=== PATIENT | male | born 1985 | race Two or more races ===

== ENCOUNTER 2021-03-05 17:47 | Inpatient (IN) | payer MEDICAID, OTHER ==
[~2021-03-05] VITALS: Ht 182.9 cm; Wt 125.0 kg
[2021-03-05] MEDS ORDERED: ACETAMINOPHEN 500 MG TAB PO ONE (18:00)
[2021-03-05 18:55] LABS: Basophils # (auto) 0.1 10 ^3/uL (0-0.2); Basophils % (auto) 1.4 % (0.0-2.0); Eosinophils # (auto) 0 10 ^3/uL (0-0.8); Eosinophils % (auto) 0.1 % (0.0-7.0); Hematocrit 48.1 % (41.0-53.0); Lymphocytes # (auto) 0.8 10 ^3/uL (0.4-5.4); Lymphocytes % (auto) 17.5 % (10.0-50.0); Mean Corpuscular Hemoglobin 31.2 pg (28.0-32.0); Mean Corpuscular Hgb Conc. 35.3 g/dL (32.0-36.0); Mean Corpuscular Volume 88.2 fL (80.0-100.0); Monocytes # (auto) 0.3 10 ^3/uL (0-1.3); Monocytes % (auto) 5.8 % (0.0-12.0); Neutrophils # (auto) 3.6 10 ^3/uL (1.6-8.6); Neutrophils % (auto) 75.2 % (37.0-80.0); Nucleated Red Blood Cells % 0.5 %; Red Blood Cells 5.45 10^6/uL (4.5-5.90); Red Cell Distribution Width 13.9 % (11.8-14.3); White Blood Cell 4.7 10^3/uL (4.4-10.8)
[2021-03-05 19:06] LABS: INR 1.05 (0.9-1.15); Partial Thromboplastin Time 29.3 sec (23.6-33.0)
[2021-03-05 19:10] LABS: Albumin 3.6 g/dL (3.4-5.0); BUN/Creatinine Ratio 8.9; Calcium 8.4 mg/dL (8.5-10.1)
[2021-03-05 19:12] LABS: Bilirubin, Total 0.9 mg/dL (0.2-1.0); Total Protein 7.7 g/dL (6.4-8.2)
[2021-03-05] MEDS ORDERED: SODIUM CHLORIDE 0.9% 1,000 ML IV ONE (19:45)
[2021-03-05] MEDS ORDERED: DexAMETHasone SOD PHOS 10MG/1ML VIAL INJ IV ONE (20:00)
[2021-03-05] MEDS ORDERED: AZITHROMYCIN 500MG/ 250ML 250 ML IV ONE (20:00)
[2021-03-05] MEDS ORDERED: IOHEXOL 350 MG/ML 100ML IJ ONE (20:00)
[2021-03-05 20:17] LABS: Magnesium 2.4 mg/dL (1.6-2.6)
[2021-03-05] MEDS ORDERED: DOCUSATE SOD 100 MG CAP PO PRN (22:30)
[2021-03-05] MEDS ORDERED: SODIUM CHLORIDE 0.9% 1,000 ML IV SCH (22:30)
[2021-03-05] MEDS ORDERED: MORPHINE SULFATE INJECTION 2 MG/ML SYRG IV PRN (22:30)
[2021-03-05] MEDS ORDERED: ONDANSETRON HCL 4 MG/2 ML VIAL IV PRN (22:30)
[2021-03-05] MEDS ORDERED: HYDROcodone-ACET 5/325MG TAB PO PRN (22:30)
[2021-03-05] MEDS ORDERED: ACETAMINOPHEN 500 MG TAB PO PRN (22:30)
[2021-03-05] MEDS ORDERED: NITROGLYCERIN 0.4 MG SL TAB SL PRN (22:30)
[2021-03-06] MEDS: cefTRIAXone 1GM/50ML D5W 50 ML IV SCH ×2 (00:25→23:06)
[2021-03-06 05:02] LABS: Basophils # (auto) 0 10 ^3/uL (0-0.2); Basophils % (auto) 0.5 % (0.0-2.0); Eosinophils # (auto) 0 10 ^3/uL (0-0.8); Hematocrit 46.6 % (41.0-53.0); Hemoglobin 16.7 g/dL (13.5-17.5); Lymphocytes # (auto) 0.6 10 ^3/uL (0.4-5.4); Mean Corpuscular Hemoglobin 31.5 pg (28.0-32.0); Mean Corpuscular Hgb Conc. 35.8 g/dL (32.0-36.0); Monocytes # (auto) 0.2 10 ^3/uL (0-1.3); Monocytes % (auto) 5.9 % (0.0-12.0); Neutrophils # (auto) 2.7 10 ^3/uL (1.6-8.6); Neutrophils % (auto) 75.6 % (37.0-80.0); Nucleated Red Blood Cells % 0.4 %; Red Cell Distribution Width 13.7 % (11.8-14.3); White Blood Cell 3.6 10^3/uL (4.4-10.8)
[2021-03-06 05:14] LABS: Albumin 3.3 g/dL (3.4-5.0); Calcium 8.3 mg/dL (8.5-10.1); Potassium 4.3 mmol/L (3.5-5.1)
[2021-03-06 05:18] LABS: BUN/Creatinine Ratio 10.5; Bilirubin, Total 0.7 mg/dL (0.2-1.0); Total Protein 7.2 g/dL (6.4-8.2)
[2021-03-06] MEDS: BUDESONIDE (INHALATION) 180 MCG IH IN SCH ×2 (08:30→19:28)
[2021-03-06] MEDS: ALBUTEROL SULF HFA 90MCG INH 200DOSE IN PRN ×2 (09:25→19:28)
[2021-03-06] MEDS: AZITHROMYCIN 500MG/ 250ML 250 ML IV SCH (09:30)
[2021-03-06] MEDS: ASCORBIC ACID 1,000 MG TAB PO SCH (09:30)
[2021-03-06] MEDS: FAMOTIDINE (10MG/ML) 2ML VL IV SCH ×2 (09:30→22:00)
[2021-03-06] MEDS: CHOLECALCIFEROL (VITD3) 2,000 UNIT CAP/TAB PO SCH (09:30)
[2021-03-06] MEDS: DexAMETHasone SOD PHOS 10MG/1ML VIAL INJ IV SCH (09:30)
[2021-03-06] MEDS: ZINC SULFATE 220mg CAP or TAB PO SCH (09:30)
[2021-03-06] MEDS: ENOXAPARIN SOD 40 MG/0.4 ML SYRINGE SC SCH ×2 (09:31→22:00)
[2021-03-06] MEDS: MULTIPLE VITAMIN TAB PO SCH (09:31)
[2021-03-06] MEDS ORDERED: REMDESIVIR PER PHARMACY 0 ML IV SCH (12:30)
[2021-03-06] MEDS ORDERED: FUROSEMIDE 40 MG/4 ML VIAL IV ONE (12:30)
[2021-03-06] MEDS ORDERED: FUROSEMIDE 40 MG/4 ML VIAL ONE (12:31)
[2021-03-06] MEDS: IVERMECTIN 3 MG TAB PO SCH (14:57)
[2021-03-06] MEDS ORDERED: REMDESIVIR 200 MG in NS 210ml LOADING DOSE ADULT IV ONE (15:00)
[2021-03-06 23:07] VITALS: BP 130/69
[2021-03-06 23:09] VITALS: BP 130/69
[2021-03-07 05:00] VITALS: BP 103/51
[2021-03-07 07:46] LABS: BUN/Creatinine Ratio 13.6; Calcium 8.4 mg/dL (8.5-10.1); Potassium 3.7 mmol/L (3.5-5.1)
[2021-03-07 07:49] LABS: Bilirubin, Total 0.8 mg/dL (0.2-1.0); Total Protein 7.1 g/dL (6.4-8.2)
[2021-03-07] MEDS: BUDESONIDE (INHALATION) 180 MCG IH IN SCH ×2 (08:26→22:54)
[2021-03-07] MEDS: ALBUTEROL SULF HFA 90MCG INH 200DOSE IN PRN ×2 (08:26→22:54)
[2021-03-07 08:53] VITALS: BP 125/65
[2021-03-07] MEDS: ASCORBIC ACID 1,000 MG TAB PO SCH (10:00)
[2021-03-07] MEDS: CHOLECALCIFEROL (VITD3) 2,000 UNIT CAP/TAB PO SCH (10:00)
[2021-03-07] MEDS: cefTRIAXone 1GM/50ML D5W 50 ML IV SCH (10:43)
[2021-03-07] MEDS: IVERMECTIN 3 MG TAB PO SCH (10:44)
[2021-03-07] MEDS: MULTIPLE VITAMIN TAB PO SCH (10:44)
[2021-03-07] MEDS: FAMOTIDINE (10MG/ML) 2ML VL IV SCH ×2 (10:44→21:47)
[2021-03-07] MEDS: DexAMETHasone SOD PHOS 10MG/1ML VIAL INJ IV SCH (10:44)
[2021-03-07] MEDS: ZINC SULFATE 220mg CAP or TAB PO SCH (10:45)
[2021-03-07] MEDS: ENOXAPARIN SOD 40 MG/0.4 ML SYRINGE SC SCH ×2 (10:46→21:47)
[2021-03-07] MEDS: AZITHROMYCIN 500MG/ 250ML 250 ML IV SCH (11:53)
[2021-03-07 13:00] VITALS: BP 109/61
[2021-03-07] MEDS: REMDESIVIR 100mg 100 MG in SODIUM CHL 0.9% 230 ML IV SCH (15:50)
[2021-03-07] MEDS ORDERED: guaiFENesin-DM 100/10mg/5ml SYR PO PRN (16:15)
[2021-03-07 17:00] VITALS: BP 106/60
[2021-03-07 22:08] VITALS: BP 120/58
[2021-03-08 05:25] VITALS: BP 117/84
[2021-03-08] MEDS: BUDESONIDE (INHALATION) 180 MCG IH IN SCH ×2 (06:53→23:19)
[2021-03-08] MEDS: ALBUTEROL SULF HFA 90MCG INH 200DOSE IN PRN ×2 (06:53→23:19)
[2021-03-08 07:24] LABS: Potassium 3.8 mmol/L (3.5-5.1)
[2021-03-08 07:30] VITALS: BP 99/60
[2021-03-08 07:32] LABS: BUN/Creatinine Ratio 15.4; Calcium 9.1 mg/dL (8.5-10.1)
[2021-03-08 07:37] LABS: Bilirubin, Total 0.6 mg/dL (0.2-1.0); Total Protein 7.1 g/dL (6.4-8.2)
[2021-03-08 09:00] VITALS: BP 104/56
[2021-03-08] MEDS: DexAMETHasone SOD PHOS 10MG/1ML VIAL INJ IV SCH (09:43)
[2021-03-08] MEDS: FAMOTIDINE (10MG/ML) 2ML VL IV SCH ×2 (09:43→21:32)
[2021-03-08] MEDS: MULTIPLE VITAMIN TAB PO SCH (09:44)
[2021-03-08] MEDS: ZINC SULFATE 220mg CAP or TAB PO SCH (09:44)
[2021-03-08] MEDS: IVERMECTIN 3 MG TAB PO SCH (09:44)
[2021-03-08] MEDS: ASCORBIC ACID 1,000 MG TAB PO SCH (09:45)
[2021-03-08] MEDS: CHOLECALCIFEROL (VITD3) 2,000 UNIT CAP/TAB PO SCH (09:45)
[2021-03-08] MEDS: ENOXAPARIN SOD 40 MG/0.4 ML SYRINGE SC SCH ×2 (12:38→21:32)
[2021-03-08] MEDS: AZITHROMYCIN 500MG/ 250ML 250 ML IV SCH (12:38)
[2021-03-08 13:00] VITALS: BP 99/60
[2021-03-08] MEDS: REMDESIVIR 100mg 100 MG in SODIUM CHL 0.9% 230 ML IV SCH (16:18)
[2021-03-08 17:00] VITALS: BP 109/62
[2021-03-08] MEDS: cefTRIAXone 1GM/50ML D5W 50 ML IV SCH (21:32)
[2021-03-08 22:23] VITALS: BP 111/54
[2021-03-09 05:18] VITALS: BP 134/69
[2021-03-09 05:54] LABS: Basophils # (auto) 0 10 ^3/uL (0-0.2); Basophils % (auto) 0.4 % (0.0-2.0); Eosinophils # (auto) 0 10 ^3/uL (0-0.8); Eosinophils % (auto) 0.4 % (0.0-7.0); Hematocrit 46.2 % (41.0-53.0); Hemoglobin 16.1 g/dL (13.5-17.5); Lymphocytes # (auto) 1.3 10 ^3/uL (0.4-5.4); Lymphocytes % (auto) 24.7 % (10.0-50.0); Mean Corpuscular Hemoglobin 31.2 pg (28.0-32.0); Mean Corpuscular Hgb Conc. 34.8 g/dL (32.0-36.0); Mean Corpuscular Volume 89.7 fL (80.0-100.0); Monocytes # (auto) 0.6 10 ^3/uL (0-1.3); Monocytes % (auto) 11.1 % (0.0-12.0); Neutrophils # (auto) 3.2 10 ^3/uL (1.6-8.6); Neutrophils % (auto) 63.4 % (37.0-80.0); Nucleated Red Blood Cells % 0.1 %; Red Blood Cells 5.15 10^6/uL (4.5-5.90); Red Cell Distribution Width 14.1 % (11.8-14.3); White Blood Cell 5.1 10^3/uL (4.4-10.8)
[2021-03-09 06:31] LABS: Albumin 2.9 g/dL (3.4-5.0); BUN/Creatinine Ratio 16.9; Calcium 8.8 mg/dL (8.5-10.1); Potassium 3.9 mmol/L (3.5-5.1)
[2021-03-09 06:39] LABS: Bilirubin, Total 0.7 mg/dL (0.2-1.0); CRP High Sensitivity 1.87 mg/dL (< 0.3); Total Protein 6.7 g/dL (6.4-8.2)
[2021-03-09] MEDS: ALBUTEROL SULF HFA 90MCG INH 200DOSE IN PRN ×2 (07:20→21:41)
[2021-03-09] MEDS: BUDESONIDE (INHALATION) 180 MCG IH IN SCH ×2 (07:20→21:40)
[2021-03-09 09:00] VITALS: BP 120/67
[2021-03-09] MEDS: FAMOTIDINE (10MG/ML) 2ML VL IV SCH ×2 (09:25→21:41)
[2021-03-09] MEDS: DexAMETHasone SOD PHOS 10MG/1ML VIAL INJ IV SCH (09:25)
[2021-03-09] MEDS: AZITHROMYCIN 500MG/ 250ML 250 ML IV SCH (09:26)
[2021-03-09] MEDS: MULTIPLE VITAMIN TAB PO SCH (09:26)
[2021-03-09] MEDS: ZINC SULFATE 220mg CAP or TAB PO SCH (09:26)
[2021-03-09] MEDS: ENOXAPARIN SOD 40 MG/0.4 ML SYRINGE SC SCH ×2 (09:27→21:42)
[2021-03-09] MEDS: IVERMECTIN 3 MG TAB PO SCH (09:27)
[2021-03-09] MEDS: CHOLECALCIFEROL (VITD3) 2,000 UNIT CAP/TAB PO SCH (09:27)
[2021-03-09] MEDS: ASCORBIC ACID 1,000 MG TAB PO SCH (09:27)
[2021-03-09 13:00] VITALS: BP 121/63
[2021-03-09] MEDS: REMDESIVIR 100mg 100 MG in SODIUM CHL 0.9% 230 ML IV SCH (15:44)
[2021-03-09] MEDS: cefTRIAXone 1GM/50ML D5W 50 ML IV SCH (21:42)
[2021-03-09 22:00] VITALS: BP 112/61
[2021-03-10 06:28] LABS: Calcium 8.7 mg/dL (8.5-10.1)
[2021-03-10 06:32] LABS: Albumin 2.9 g/dL (3.4-5.0); BUN/Creatinine Ratio 17.6
[2021-03-10 06:35] LABS: Bilirubin, Total 0.6 mg/dL (0.2-1.0); Total Protein 6.6 g/dL (6.4-8.2)
[2021-03-10] MEDS: BUDESONIDE (INHALATION) 180 MCG IH IN SCH ×2 (07:26→21:47)
[2021-03-10] MEDS: ALBUTEROL SULF HFA 90MCG INH 200DOSE IN PRN ×2 (07:26→21:47)
[2021-03-10 09:00] VITALS: BP 102/54
[2021-03-10] MEDS: ASCORBIC ACID 1,000 MG TAB PO SCH (10:00)
[2021-03-10] MEDS: FAMOTIDINE (10MG/ML) 2ML VL IV SCH (10:51)
[2021-03-10] MEDS: AZITHROMYCIN 500MG/ 250ML 250 ML IV SCH (10:51)
[2021-03-10] MEDS: MULTIPLE VITAMIN TAB PO SCH (10:51)
[2021-03-10] MEDS: DexAMETHasone SOD PHOS 10MG/1ML VIAL INJ IV SCH (10:51)
[2021-03-10] MEDS: ZINC SULFATE 220mg CAP or TAB PO SCH (10:51)
[2021-03-10] MEDS: CHOLECALCIFEROL (VITD3) 2,000 UNIT CAP/TAB PO SCH (10:52)
[2021-03-10] MEDS: ENOXAPARIN SOD 40 MG/0.4 ML SYRINGE SC SCH ×2 (10:52→21:52)
[2021-03-10] MEDS: IVERMECTIN 3 MG TAB PO SCH (10:52)
[2021-03-10 12:03] LABS: Hepatitis B Surface Antibody Negative
[2021-03-10 12:37] LABS: Hepatitis A Total Antibody Negative
[2021-03-10 13:00] VITALS: BP 104/60
[2021-03-10 13:14] LABS: Hepatitis B Core Total AB Negative; Hepatitis B Surface Antigen Negative (Negative); Hepatitis C Antibody Negative (Negative)
[2021-03-10] MEDS: REMDESIVIR 100mg 100 MG in SODIUM CHL 0.9% 230 ML IV SCH (15:52)
[2021-03-10 17:00] VITALS: BP 112/66
[2021-03-10] MEDS: cefTRIAXone 1GM/50ML D5W 50 ML IV SCH (21:52)
[2021-03-10 22:00] VITALS: BP 106/59
[2021-03-11 05:00] VITALS: BP 121/66
[2021-03-11] MEDS: BUDESONIDE (INHALATION) 180 MCG IH IN SCH (07:17)
[2021-03-11] MEDS: ALBUTEROL SULF HFA 90MCG INH 200DOSE IN PRN (07:17)
[2021-03-11 09:26] VITALS: BP 142/66
== END 2021-03-11 11:00 | disposition home or self-care (01) | DRG 137 ==
LOC: ER 17:47 → TELE 22:28 → TELE-EAST 03-06 22:22
PROVIDERS: ADMIT Nurse Practitioner Family; ATTEND Internal Medicine
PROC: XW033E5 Introduction of Remdesivir Anti-infective into Peripheral Vein, Percutaneous Approach, New Technology Group 5 (ICD-10-PCS; principal; 2021-03-06)
DX: U07.1 COVID-19 (principal); J96.01 Acute respiratory failure with hypoxia; J12.82 Pneumonia due to coronavirus disease 2019; Z68.43 Body mass index [BMI] 50.0-59.9, adult; D89.839 Cytokine release syndrome, grade unspecified; E66.01 Morbid (severe) obesity due to excess calories; F17.210 Nicotine dependence, cigarettes, uncomplicated
CPT/HCPCS: 36415; 36600; 71045; 71250; 80053; 82728; 82805; 83036; 83605; 83615; 83735; 84443; 84484; 85025; 85379; 85610; 85730; 86141; 86704; 86706; 86708; 86803; 87040; 87340; 87426; 93005; 93970; 94640; 96365; 96366; 96375; G0378; J0696; J1100; J3490